=== PATIENT | male | born 1975 | race Caucasian/White ===

== ENCOUNTER 2022-05-31 14:52 | Emergency (ER) | payer BC, SELFPAY ==
[2022-05-31] MEDS ORDERED: Ketorolac Tromethamine 30 MG/ML VIAL ONE ×2 (16:01)
== END 2022-05-31 17:00 | disposition home or self-care (01) ==
LOC: CSHERS 14:52
DX: M25.562 Pain in left knee (principal); I10 Essential (primary) hypertension; F17.210 Nicotine dependence, cigarettes, uncomplicated
CPT/HCPCS: 96372; J1885

== ENCOUNTER 2022-06-09 06:09 | Emergency (ER) | payer SELFPAY ==
[2022-06-09] MEDS ORDERED: Cefepime 1 GM VIAL ONE (07:27)
[2022-06-09] MEDS ORDERED: Vancomycin 1 GM VIAL ONE (07:28)
[2022-06-09 08:18] LABS: #Basophils 0.1 10x3/uL (0.0-0.2); #Eosinphils 0.2 10x3/uL (0.0-0.5); #Monocytes 0.9 10x3/uL (0.0-1.1); #Neutrophils 8.6 10x3/uL (1.5-8.4); %Basophils 0.5 % (0.0-2.0); %Eosinophils 1.5 % (0.0-6.0); %Lymphocytes 16.6 % (18.0-47.0); %Monocytes 7.3 % (0.0-10.0); %Neutrophils 73.3 % (40.0-75.0); Hemoglobin 15.3 g/dL (13.5-17.5); Mean Corpuscular HGB CONC 33.8 g/dL (32.0-36.0); Mean Corpuscular Hemoglobin 32.8 pg (27.0-33.0); Mean Corpuscular Volume 97.2 fl (81.2-95.1); Mean Platelet Volume 11.1 fl (7.4-10.4); Platelet Count 236 10x3/uL (150-450); RBC Distribution Width 12.8 % (11.5-14.5); Red Blood Cell (RBC) Count 4.66 10x6/uL (4.32-5.72); White Blood Cell (WBC) Count 11.7 10x3/uL (3.5-10.5)
[2022-06-09 08:36] LABS: ALT (SGPT) 31 U/L (8-55); AST (SGOT) 19 U/L (5-34); Albumin 4.3 g/dL (3.5-5.0); Alkaline Phosphatase 51 U/L (40-110); Anion Gap 15 mmol/L (10-20); BUN (Urea Nitrogen) 9 mg/dL (8.9-20.6); Bilirubin, Total 0.5 mg/dL (0.2-1.2); Calc. Creatinine Clearance 0 mL/min (70-130); Calcium 9.2 mg/dL (7.8-10.44); Carbon Dioxide 29 mmol/L (22-29); Chloride 99 mmol/L (98-107); Estimated GFR 110; Globulin 2.4 g/dL (2.4-3.5); Glucose 108 mg/dL (70-105); Potassium 4.5 mmol/L (3.5-5.1); Protein, Total 6.7 g/dL (6.0-8.3); Sodium 138 mmol/L (136-145)
[2022-06-09 08:52] LABS: SARS-CoV-2 NAA Rapid Test Not Detected (NotDetected)
[2022-06-09] MEDS ORDERED: Ondansetron ODT 4 MG TAB PO PRN (10:50)
[2022-06-09] MEDS ORDERED: Senokot S 8.6-50 MG TAB PO PRN (10:50)
[2022-06-09] MEDS ORDERED: Calcium Carbonate 500 MG ChewTAB PO PRN (10:50)
[2022-06-09] MEDS ORDERED: Acetaminophen 325 MG TAB PO PRN (10:50)
[2022-06-09] MEDS ORDERED: Ondansetron PF 4 MG/2 ML Vial IVP PRN (10:50)
[2022-06-09] MEDS ORDERED: methylPREDNISolone Sod Succ/PF 125 MG/2 ML VIAL IVP SCH (11:00)
[2022-06-09] MEDS ORDERED: Ipratropium Bromide 2.5 ml Neb ONE (11:28)
[2022-06-09] MEDS ORDERED: methylPREDNISolone Sod Succ/PF 125 MG/2 ML VIAL ONE (11:31)
[2022-06-09] MEDS ORDERED: Ventolin HFA Inhaler 60 PUFF INHALER INH PRN (12:34)
[2022-06-09] MEDS ORDERED: Iopamidol 370 76% 100 ML VIAL ONE (13:53)
[2022-06-09] MEDS ORDERED: Doxycycline 100 MG CAP PO SCH (21:00)
[2022-06-10] MEDS ORDERED: predniSONE 20 MG TAB PO SCH (08:00)
== END 2022-06-09 12:26 | disposition home or self-care (01) ==
LOC: SUATTDRO 06:09 → CSHERS 06:09
PROVIDERS: ADMIT Internal Medicine; ATTEND Internal Medicine
DX: J98.01 Acute bronchospasm (principal); I10 Essential (primary) hypertension; F17.210 Nicotine dependence, cigarettes, uncomplicated; Z20.822 Contact with and (suspected) exposure to COVID-19
CPT/HCPCS: 36415; 71045; 71275; 80053; 83605; 83880; 84484; 85025; 87040; 94640; 96365; 96366; 96367; 96375; J0692; J2930; J3370; J7611; Q9967; U0002

== ENCOUNTER 2023-04-10 13:02 | Emergency (ER) | payer BC ==
[2023-04-10 14:03] LABS: #Basophils 0.1 10x3/uL (0.0-0.2); #Eosinphils 0.1 10x3/uL (0.0-0.5); #Monocytes 0.7 10x3/uL (0.0-1.1); #Neutrophils 5.8 10x3/uL (1.5-8.4); %Basophils 0.7 % (0.0-2.0); %Eosinophils 1.4 % (0.0-6.0); %Lymphocytes 29.5 % (18.0-47.0); %Monocytes 6.9 % (0.0-10.0); %Neutrophils 60.8 % (40.0-75.0); Hematocrit 46.8 % (38.8-50.0); Mean Corpuscular HGB CONC 34.2 g/dL (32.0-36.0); Mean Corpuscular Hemoglobin 32.7 pg (27.0-33.0); Mean Corpuscular Volume 95.7 fl (81.2-95.1); Mean Platelet Volume 10.9 fl (7.4-10.4); Platelet Count 205 10x3/uL (150-450); RBC Distribution Width 13.2 % (11.5-14.5); Red Blood Cell (RBC) Count 4.89 10x6/uL (4.32-5.72); White Blood Cell (WBC) Count 9.5 10x3/uL (3.5-10.5)
[2023-04-10] MEDS ORDERED: methylPREDNISolone Sod Succ/PF 125 MG/2 ML VIAL ONE (14:16)
[2023-04-10] MEDS ORDERED: Albuterol 2.5 MG (3 mL) NEB ONE (14:19)
[2023-04-10] MEDS ORDERED: Albuterol 2.5 MG (0.5 mL) NEB ONE (14:19)
[2023-04-10 14:21] LABS: ALT (SGPT) 28 U/L (8-55); AST (SGOT) 19 U/L (5-34); Albumin 3.9 g/dL (3.5-5.0); Alkaline Phosphatase 54 U/L (40-110); Anion Gap 13 mmol/L (10-20); BUN (Urea Nitrogen) 9 mg/dL (8.9-20.6); Bilirubin, Total 0.3 mg/dL (0.2-1.2); Calc. Creatinine Clearance 0 mL/min (70-130); Calcium 8.6 mg/dL (7.8-10.44); Carbon Dioxide 26 mmol/L (22-29); Chloride 104 mmol/L (98-107); Estimated GFR 111; Globulin 2.2 g/dL (2.4-3.5); Glucose 143 mg/dL (70-105); Potassium 3.6 mmol/L (3.5-5.1); Protein, Total 6.1 g/dL (6.0-8.3); Sodium 139 mmol/L (136-145)
[2023-04-10 14:23] LABS: Troponin I 0.025 ng/mL (< 0.028)
[2023-04-10 16:13] LABS: SARS-CoV-2 NAA Rapid Test Not Detected (NotDetected)
== END 2023-04-10 15:49 ==
LOC: CSHERS 13:02
DX: J18.9 Pneumonia, unspecified organism (principal); J45.901 Unspecified asthma with (acute) exacerbation; I10 Essential (primary) hypertension; F17.210 Nicotine dependence, cigarettes, uncomplicated
CPT/HCPCS: 36415; 71045; 80053; 83880; 84484; 85025; 85379; 93005; 96374; J2930; J7611